=== PATIENT | male | born 1985 | race Caucasian/White ===

== ENCOUNTER 2020-04-24 11:31 | Emergency (ER) | payer OTHER, SELFPAY ==
--- NOTE | 2020-04-24 11:41 | ED.URI ---
HPI - URI/Sore Throat General Chief Complaint: Upper Respiratory Infection Stated Complaint: sore throat Time Seen by Provider: 04/24/20 11:42 Source: patient and RN notes reviewed History of Present Illness HPI Narrative: Patient is a 34-year-old male who presents the urgent care with complaints of a sore throat for the last 2 days. Patient states that he went to work this morning and the sore throat had worsened with also a headache and some sweating. Patient states that work is not worried about Covid considering he has had no positive contacts with Covid. Denies any contacts with strep but states that he gets this yearly and has been known to be a carrier . Patient denies of any fever, nausea, vomiting, abdominal pain. Patient has not used anything [id number] for his symptoms. No other acute complaints. No acute distress noted. Patient aware of the plan of care. Some parts of this dictation were generated by voice recognition software and may contain typographical and/or grammatical inaccuracies. Related Data Home Medications Medication Instructions Recorded Confirmed No Home Medications 04/24/20 04/24/20 Allergies Allergy/AdvReac Type Severity Reaction Status Date / Time No Known Allergies Allergy Verified 04/24/20 11:48 Review of Systems Review of Systems: Narrative: CONSTITUTIONAL: Reports of sweats without known fever EYES: Denies visual changes, redness, or discharge. ENT: Reports of sore throat CARDIOVASCULAR: Denies chest pain, palpitations, or edema. RESPIRATORY: Denies cough or dyspnea. GASTROINTESTINAL: Denies abdominal pain, nausea, vomiting, or diarrhea. GENITOURINARY: Denies dysuria or hematuria. SKIN: Denies rash or itching. MUSCULOSKELETAL: Denies back pain, joint pain, or myalgia. NEUROLOGIC: Reports of headache All other systems reviewed are negative, except as documented in HPI. PMFSH Comments At the time of my signature, I reviewed and agree with the nursing past medical, surgical, social, and family history. There is no relevant family history pertinent to the patient complaint. Exam Narrative: Exam Narrative: GENERAL: This is a well-nourished, well-developed patient, in no apparent distress. HEAD: normocephalic, atraumatic. EYES: PERRL. Sclera clear/white. Vision is grossly intact. EARS: External ears normal, auditory canals clear and without drainage, TMs normal without perforation. Hearing grossly intact. NOSE: External nose normal with no obvious nasal discharge, nares without redness, no rhinorrhea. THROAT: Mucous membranes moist, posterior pharynx clear. Mild postnasal drainage with notable petechiae to the roof of the posterior oropharynx. No exudate or ulceration noted. No tonsillar edema. NECK: Neck supple, non-tender without lymphadenopathy, masses or thyromegaly. CARDIOVASCULAR: Regular rate and rhythm without murmurs, gallops, or rubs. RESPIRATORY: Clear to auscultation. Breath sounds equal bilaterally. No wheezes, rales, or rhonchi. SKIN: warm, intact with no suspicious lesions or rash, good texture and turgor. NEURO: awake, alert, and oriented to person, place and time. There were no obvious focal neurologic abnormalities. EXTREMITIES: No clubbing, cyanosis, or edema. Course Vital Signs Vital signs: Vital Signs Temperature 98.2 F 04/24/20 11:44 Pulse Rate 50 L 04/24/20 11:44 Respiratory Rate 20 04/24/20 11:44 Blood Pressure 126/71 04/24/20 11:44 Pulse Oximetry 99 04/24/20 11:44 Temperature 98.2 F 04/24/20 11:44 Pulse Rate 50 L 04/24/20 11:44 Respiratory Rate 20 04/24/20 11:44 Blood Pressure 126/71 04/24/20 11:44 Pulse Oximetry 99 04/24/20 11:44 Reviewed MDM - URI/Sore Throat MDM Narrative Medical decision making narrative: Reviewed lab results with the patient. He is aware that strep and flu swabs were both negative. Educated patient on strep swab and we will call within 72 hours if culture is positive and antibiotics are
[2020-04-24 11:44] VITALS: BP 126/71; PULSE 50; RESP 20; TEMP 36.8; O2SAT 99
== END 2020-04-24 12:14 | disposition home or self-care (01) ==
PROVIDERS: Emergency Provider Nurse Practitioner Family
DX: J02.9 Acute pharyngitis, unspecified (principal)
CPT/HCPCS: 87081; 87804; 87880; 99213; G0463

== ENCOUNTER 2021-02-19 18:07 | Emergency (ER) | payer OTHER, SELFPAY ==
[2021-02-19 18:22] VITALS: BP 126/81; PULSE 96; RESP 18; TEMP 37.7; O2SAT 99
--- NOTE | 2021-02-19 18:29 | ED.GENADULT ---
HPI - General Adult General Chief complaint: Upper Respiratory Infection Stated complaint: Sore Throat,Headache Source: patient Mode of arrival: ambulatory Limitations: no limitations History of Present Illness HPI narrative: 35 y/o male. PMHx none reported. Presents to [facility] today with acute complaints of sore throat and hurts to swallow for > the past 1 week. Pt tells me that he had initially had nasal congestion and semi-productive cough, which has since cleared. He was seen at [facility] in the past 1 week for these symptoms, and tells me that he had had negative Covid and Influenza testing at this [facility]. However, he tells me that his throat has since become so much worse , noting that he gets strep about once a year and he feels like he has strep throat now . No fever. No dyspnea, dysphagia, involuntary drooling. No continued cough, chest congestion now improved. He remains w/o additional acute c/o illness upon exam. Related Data Allergies Allergy/AdvReac Type Severity Reaction Status Date / Time No Known Allergies Allergy Verified 02/19/21 18:33 Review of Systems Review of Systems: CONSTITUTIONAL: Denies fever, chills, sweats. EYES: Denies visual changes, redness, discharge. ENT: Positive rhinorrhea, congestion, sore throat. No otalgia. CARDIOVASCULAR: Denies chest pain, palpitations, edema. RESPIRATORY: Denies dyspnea, wheezing, cough GASTROINTESTINAL: Denies abdominal pain, nausea, vomiting, diarrhea. GENITOURINARY: Denies dysuria, hematuria, abnormal discharge SKIN: Denies rash or itching. MUSCULOSKELETAL: Denies acute back pain, joint pain, or myalgia. NEUROLOGIC: Denies numbness, or focal weakness. PSYCHIATRIC: Denies anxiety or depression. All systems reviewed & are unremarkable except as noted in HPI and below Exam Narrative: GENERAL: This is a well-nourished, well-developed adult, in no apparent distress. HEAD: normocephalic, atraumatic. EYES: PERRL. Sclera clear/white. EARS: External ears normal, auditory canals clear and without drainage, TMs normal. NOSE: External nose normal. Positive Rhinorrhea, no obstruction, nares patent. THROAT: Mucous membranes moist, posterior pharynx is erythematous, with minimal white posterior exudate. No airway swelling or compromise. NECK: Neck supple, non-tender without lymphadenopathy, masses or thyromegaly. CARDIOVASCULAR: Regular rate and rhythm without murmurs, gallops, or rubs. RESPIRATORY: Clear to auscultation. Breath sounds equal bilaterally. No wheezes, rales, or rhonchi. GASTROINTESTINAL: Abdomen soft, non-tender, nondistended. Bowel sounds are active. No guarding. SKIN: warm, intact with no suspicious lesions or rash, good texture and turgor. NEURO: Alert, active, and age appropriate. No focal neurologic deficits. Course Vital Signs Vital signs: Vital Signs Temperature 37.7 C H 02/19/21 18:22 Pulse Rate 96 02/19/21 18:22 Respiratory Rate 18 02/19/21 18:22 Blood Pressure 126/81 02/19/21 18:22 Pulse Oximetry 99 02/19/21 18:22 Temperature 37.7 C H 02/19/21 18:22 Pulse Rate 96 02/19/21 18:22 Respiratory Rate 18 02/19/21 18:22 Blood Pressure 126/81 02/19/21 18:22 Pulse Oximetry 99 02/19/21 18:22 Medical Decision Making MDM Narrative Medical decision making narrative: -No oral airway or respiratory distress, appears non-toxic. -Rapid strep in clinic is negative. Prior Covid and Influenza testing at [facility], also reported per patient as negative. -Considering physical exam findings and S/S > 1 week, will proceed with treatment for URI/Pharyngitis possibly early streptococcal w/bacterial origin. -Amoxicillin as drug of choice, as directed. -May resume all additional OTC remedies for symptomatic relief. -PCP F/U 1 WK. -ER W/Emergent health status changes. Pt agrees. Differential Diagnosis Differential Diagnosis: Differential Diagnosis: Consideration of the following conditions may be warranted
== END 2021-02-19 18:43 | disposition home or self-care (01) ==
PROVIDERS: Emergency Provider Nurse Practitioner Adult Health; PCP Internal Medicine
DX: J02.9 Acute pharyngitis, unspecified (principal)
CPT/HCPCS: 87081; 87880; 99213; G0463

== ENCOUNTER 2024-04-29 15:34 | Emergency (ER) | payer OTHER, SELFPAY ==
--- NOTE | 2024-04-29 15:35 | PC.NURSE ---
LEFT D/T WAIT TIME
== END 2024-04-29 15:54 | disposition left against medical advice (07) ==
LOC: ANHED 15:38
PROVIDERS: PCP Internal Medicine
DX: Z53.21 Procedure and treatment not carried out due to patient leaving prior to being seen by health care provider (principal)
CPT/HCPCS: 99199